=== PATIENT | male | born 1965 | race Caucasian/White ===

== ENCOUNTER 2017-03-11 11:40 | Day surgery (SDC) | payer OTHER ==
[2017-03-11] MEDS ORDERED: metformin (13:00)
[2017-03-11] MEDS ORDERED: miralax (13:00)
[2017-03-11] MEDS ORDERED: zantac (13:00)
[2017-03-11] MEDS ORDERED: omeprazole (13:00)
[2017-03-11] MEDS ORDERED: levothyroxine (13:00)
[2017-03-11 13:42] VITALS: BP 109/67; PULSE 77; RESP 18
[2017-03-11] MEDS ORDERED: MIDAZOLAM 1 MG/ML 2 ML INJ ONE ×2 (14:43)
[2017-03-11] MEDS ORDERED: FENTAnyl 50 MCG/ML VIAL ONE (14:43)
[2017-03-11 15:00] VITALS: BP 112/78; PULSE 84; RESP 20
--- NOTE | 2017-03-11 15:13 | GILP ---
DATE OF PROCEDURE: 03/11/2017 NAME OF PROCEDURES: 1. Esophagogastroduodenoscopy and biopsy. 2. Colonoscopy. SURGEON: Jackie Rascon MD PREOPERATIVE DIAGNOSES: 1. Abdominal pain. 2. Rectal bleeding. POSTOPERATIVE DIAGNOSES: 1. Bile reflux gastritis. 2. Gastric mucosal biopsies were taken for Helicobacter pylori test. 3. Colonoscopy all the way to the cecum. 4. Diverticulosis of the colon. 5. Internal hemorrhoids. 6. No colon neoplasm was identified. INDICATION FOR THE PROCEDURE: Mr. Hernan Hickey is a 51-year-old male patient who had upper abdomina l pain, not responding to therapy. He also had history of rectal bleeding. The procedures and possible complications were well explained to the patient. The patient understoo d and consented to the procedure. DESCRIPTION OF PROCEDURE: Under the influence of fentanyl and Versed, the gastroscope was carefully introduced into the esophagus and under direct vision, it was advanced to the stomach and through t he pylorus into the duodenal bulb and descending duodenum. FINDINGS: ESOPHAGUS: The mucosa was normal. STOMACH: The patient had bile reflux gastritis. Gastric mucosal biopsies were taken for H. pylori test. DUODENUM: Normal. The colonoscope was carefully introduced in the rectum and under direct vision, it was advanced all the way to the cecum. FINDINGS: The patient had diverticulosis of the colon. He also had internal hemorrhoids. No colon neoplasm was identified. He tolerated the procedures very well and there was no complication from the procedures. At the end of the procedures, he was awake with stable vital signs and he was discharged home to the care of h is family. IMPRESSION: Please see postoperative diagnoses. PLAN: 1. Continue omeprazole and Zantac. 2. Add Carafate 1 g p.o. t.i.d. before meals. 3. Anusol-HC 2.5% cream at bedtime p.r.n. for hemorrhoids. 4. Await H. pylori test report. Dictated By: JACKIE ARTEAGA/SAGE Conf#: [id number] DID#: [id number] CC: JACKIE RASCON MD;*EndCC*
--- NOTE | 2017-03-12 05:40 | CONS ---
DATE OF ADMISSION: 03/11/2017 DATE OF CONSULTATION: TYPE OF CONSULTATION: Preoperative gastroenterology. Dear Dr. Richard: I thank you very much for this kind referral. HISTORY OF PRESENT ILLNESS: Mr. Hernan Hickey is a 51-year-old male patient who has been referred to me for further evaluation of positive occult blood in stool. The patient also gives history of rec morgan bleeding. There is no past history of colon neoplasm. The patient never had screening colonosc opy. The patient went to the emergency room and he states that rectal examination did not reveal an y abnormality. The patient also complains of upper abdominal pain, not responding to therapy with o meprazole and Zantac. There is no past history of peptic ulcer disease. He is not taking any nonst eroidal anti-inflammatory agents. There is no history of gallstones. He does not have any fever, c hills, or jaundice. There is no history of liver disease. He is not a hypertensive. He is diabeti c. He does not have any heart disease or lung problem. There is no history of kidney disease. The patient has hypothyroidism. SOCIAL HISTORY: He is a nonsmoker. He does not abuse alcohol. FAMILY HISTORY: Negative for gastrointestinal tract neoplasm. ALLERGIES: THERE IS NO HISTORY OF SIGNIFICANT DRUG ALLERGY. MEDICATIONS: 1. Omeprazole. 2. Zantac. 3. MiraLax. 4. Metformin. 5. Levothyroxine. PHYSICAL EXAMINATION: VITAL SIGNS: He is 5 feet 5 inches tall and he weighs 128 pounds. HEART: Examination of the heart reveals normal first and second heart sounds. LUNGS: Clear. ABDOMEN: Soft without any distention. Liver and spleen are not palpable. There are no masses. Th ere is no focal tenderness. Normal bowel sounds are heard. RECTAL: Examination deferred per the patient's request. It will be done at the time of colonoscopy . CENTRAL NERVOUS SYSTEM: Does not reveal any focal neurological deficit. IMPRESSION: 1. Change in the bowel habit with constipation. 2. The patient is on MiraLax. 3. Rectal bleeding. 4. The patient went to the emergency room and he states that rectal examination did not reveal any abnormalities. 5. Upper abdominal pain, not responding to therapy with omeprazole and Zantac. 6. Diabetes mellitus. 7. Hypothyroidism. PLAN: 1. Continue omeprazole and Zantac. 2. Colonoscopy and upper endoscopy for further evaluation. The procedures and possible complications are well explained to the patient. The patient understand s and consents to the procedures. I thank you once again. With warmest personal regards, Dictated By: JACKIE ARTEAGA/SAGE Conf#: [id number] DID#: [id number] CC: JACKIE RASCON MD;*EndCC*
== END 2017-03-11 16:18 | disposition home or self-care (01) ==
LOC: GIL 11:40
PROVIDERS: ATTEND Internal Medicine Gastroenterology
DX: K29.70 Gastritis, unspecified, without bleeding (principal); K21.9 Gastro-esophageal reflux disease without esophagitis; K57.30 Diverticulosis of large intestine without perforation or abscess without bleeding; K64.8 Other hemorrhoids; K62.5 Hemorrhage of anus and rectum; K59.00 Constipation, unspecified; E11.9 Type 2 diabetes mellitus without complications; E03.9 Hypothyroidism, unspecified
CPT/HCPCS: 43239; 45378; 87081; J2250; J3010; Z7610